=== PATIENT | female | born 1975 | race Native Hawaiian/Other Pacific Islander ===

== ENCOUNTER 2024-10-08 12:40 | Outpatient (CLI) | payer BC | END 2024-10-08 12:41 | disposition home or self-care (01) | LOC: CSHULT 12:40 | PROVIDERS: ATTEND Internal Medicine Hematology & Oncology | DX: I26.99 Other pulmonary embolism without acute cor pulmonale (principal); Z79.01 Long term (current) use of anticoagulants; R19.09 Other intra-abdominal and pelvic swelling, mass and lump; I82.401 Acute embolism and thrombosis of unspecified deep veins of right lower extremity; C56.2 Malignant neoplasm of left ovary | CPT/HCPCS: 93306 ==

== ENCOUNTER 2025-07-27 14:32 | Outpatient (CLI) | payer BC | END 2025-07-27 14:33 | disposition home or self-care (01) | LOC: CSHULT 14:32 | PROVIDERS: ATTEND Internal Medicine Hematology & Oncology | DX: I26.99 Other pulmonary embolism without acute cor pulmonale (principal); Z79.01 Long term (current) use of anticoagulants; R19.09 Other intra-abdominal and pelvic swelling, mass and lump; I82.401 Acute embolism and thrombosis of unspecified deep veins of right lower extremity; C56.2 Malignant neoplasm of left ovary; I35.8 Other nonrheumatic aortic valve disorders | CPT/HCPCS: 93306 ==